=== PATIENT | female | born 1990 | race Caucasian/White ===

== ENCOUNTER 2017-10-09 20:18 | Emergency (ER) | payer OTHER ==
[~2017-10-09] VITALS: Ht 180.3 cm; Wt 79.5 kg
[~2017-10-09 20:18] MED LIST: FLEXERIL 1010 MG/TAB PO; NORCO 325 MG-51 TAB PO
[2017-10-09 20:20] VITALS: BP 151/81; TEMP 98.9
[2017-10-09] MEDS ORDERED: VALTREX 50500 MG/TAB (20:22)
[2017-10-09] MEDS ORDERED: PREDNISONE20 MG PO (21:31)
[2017-10-09] MEDS ORDERED: NORCO 325 MG-51 TAB PO (21:31)
[2017-10-09 21:42] VITALS: PULSE 94
== END 2017-10-09 21:43 | disposition home or self-care (01) ==
LOC: COL.ER 20:18
DX: M54.31 Sciatica, right side (principal); F17.210 Nicotine dependence, cigarettes, uncomplicated
CPT/HCPCS: J1885; J2360; J7512